=== PATIENT | male | born 1995 | race Caucasian/White ===

== ENCOUNTER 2017-01-13 00:32 | Emergency (ER) | payer OTHER ==
[~2017-01-13] VITALS: Ht 175.3 cm; Wt 104.1 kg
[2017-01-13 00:39] VITALS: BP 151/87
--- NOTE | 2017-01-13 01:45 | NUR ---
TO ER BED 8
--- NOTE | 2017-01-13 01:45 | NUR ---
PT DESCRIBES "CHEST DISCOMFORT" 12/28. OFF AND ON SINCE YESTERDAY. FROM THE MIDDLE OF CHEST TO LEFT AREA. DENIES N/V. HAS SOME DIARRHEA. MED HX: NONE
[2017-01-13] MEDS ORDERED: ALUMINUM HYD/MAG/SIMETHICONE 30 ML UDC PO ONE (01:55)
[2017-01-13] MEDS ORDERED: DICYCLOMINE HCL LIQUID 10 MG/5 ML UDC PO ONE (01:55)
[2017-01-13] MEDS ORDERED: LIDOCAINE VISCOUS 2% 20 ML UDC PO ONE (01:55)
[2017-01-13 03:26] VITALS: BP 139/73
--- NOTE | 2017-01-13 03:26 | NUR ---
Patient discharged with v/s stable. Written and verbal after care instructions given and explained. Patient alert, oriented and verbalized understanding of instructions. Ambulatory with steady gait. All questions addressed prior to discharge. ID band removed. Patient advised to follow up with PMD. Rx of TRAMADOL AND PROTONIX given. Patient educated on indication of medication including possible reaction and side effects. Opportunity to ask questions provided and answered.
== END 2017-01-13 03:26 | disposition home or self-care (01) ==
LOC: MED 00:32
PROC: 4A02X4Z Measurement of Cardiac Electrical Activity, External Approach (ICD-10-PCS; principal; 2017-01-13)
DX: K21.9 Gastro-esophageal reflux disease without esophagitis (principal); R07.89 Other chest pain; I10 Essential (primary) hypertension

== ENCOUNTER 2019-11-03 19:37 | Emergency (ER) | payer OTHER ==
[~2019-11-03] VITALS: Ht 175.3 cm; Wt 99.8 kg
[2019-11-03 20:05] VITALS: BP 135/89
--- NOTE | 2019-11-03 20:08 | NUR ---
TO LOBBY A/W BED AMBULATORY
--- NOTE | 2019-11-03 23:52 | NUR ---
AMBULATED TO BED #7
--- NOTE | 2019-11-04 00:15 | NUR ---
PT ASSESSMENT COMPLETE. PT LAYING SUPINE IN BED. BEDRAIL X1 UP. WILL CONTINUE TO MONITOR.
--- NOTE | 2019-11-04 00:57 | NUR ---
PT RESTING IN BED SITTING UPRIGHT AND EYES OPEN. PT AAO X4. RESPIRATIONS ARE EVEN AND UNLABORED. SKIN IS WARM AND DRY TO TOUCH. PT DENIES PAIN AT THIS TIME. PT DENIES DIZZYNESS. DENIES N/V. VSS. PT LOOKING AT PHONE AND ON MONITOR.
--- NOTE | 2019-11-04 01:35 | NUR ---
ORTHOSTATIC VS TAKED BY [facility] EMT.
--- NOTE | 2019-11-04 01:42 | NUR ---
BS CHECKED: 100. MADE AWARE. NO NEW ORDERS AT THIS TIME.
--- NOTE | 2019-11-04 02:01 | NUR ---
DR. GABRIEL AT BEDSIDE.
[2019-11-04 02:30] VITALS: BP 117/82
--- NOTE | 2019-11-04 02:30 | NUR ---
Patient discharged with v/s stable. Written and verbal after care instructions given and explained. Patient verbalized understanding. Ambulatory with steady gait. All questions addressed prior to discharge. Advised to follow up with PMD.
== END 2019-11-04 02:30 | disposition home or self-care (01) ==
LOC: MED 19:37
DX: R42 Dizziness and giddiness (principal); Z98.890 Other specified postprocedural states
CPT/HCPCS: 93005; 99283